=== PATIENT | male | born 1940 | race Caucasian/White ===

== ENCOUNTER 2016-04-06 01:46 | Emergency (ER) | payer OTHER ==
--- NOTE | 2016-04-06 03:46 | ED CLINICAL REPORT ---
Clinical Report - Physicians/Mid Levels [facility] [address] [place] [address] 04/06/2016 1:47 Patient: SERVANDO LEMA Time Seen: 01:59. Arrived- By ambulance. Historian- patient and EMS personnel. HISTORY OF PRESENT ILLNESS Chief Complaint: VOMITING and DIARRHEA. This started about 4 days ago and is still present. It was gradual in onset and has been constant and waxing/waning. The patient has had nausea and vomiting. He has had loose stools. This has occurred numerous times. It has been watery. No bloody diarrhea. No black stools, bloody stools, abdominal pain or known contact with a sick individual. Has not recently been on antibiotics. The illness is described as severe. REVIEW OF SYSTEMS No chills, fever, sweats, calf pain or chest pain. No palpitations. He has had a severe cough productive of thick, yellow, blood tinged sputum. He has had pedal edema involving the right and left leg (chronically). It has been similar to previous symptoms. 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 All systems otherwise negative, except as recorded above. PAST HISTORY Dialysis on Monday, and Monday PCP - [facility]. Problems: Atrial Fibrillation. Renal Failure. Internal defirbrilator . Pulmonary Embolism. Cancer. Additional Surgeries: Back Surgery. Internal Defibrillator. Pulmonary ectomy. Shoulder Surgery. Medications: Megestrol Acetate Oral (Suspension 40 mg/mL) 400mg , daily as needed. Diphenoxylate-Atropine Oral (Tablet 2.5-0.025 mg) 1 tablet, 4 x daily as needed. Calciun carbonate 1000mg , every 4 hrs PRN. Warfarin Sodium Oral (2.5mg for 1 day, 5 mg for 3-4 days , dependent on INR ). Omeprazole Oral 20 mg, daily. Midodrine HCl Oral 5 mg, 3 x daily. Metoprolol Succinate ER Oral (Tablet Extended Release 24 Hour 50 mg) 1 tablet, 2 x daily. Fludrocortisone 0.2mg, daily. FiberCon Oral (Tablet 625 mg) 1 tablet, daily. Citalopram Hydrobromide Oral (Tablet 20 mg) 1 tablet, daily. Atorvastatin Calcium Oral 80 mg, daily. Allergies: Another antibiotic - pt unsure of name . Cipro. SOCIAL HISTORY Smoker- current status unknown. FAMILY HISTORY Heart disease in multiple family members, first-degree relative (father and sibling). ADDITIONAL NOTES The nursing notes have been reviewed. PHYSICAL EXAM Vital Signs: 04/06/2016 01:51 BP: 92/60. HR: 59. RR: 17. O2 saturation: 99%. Pain level now: 0/10. Have been reviewed. Appearance: Alert. Eyes: Pupils equal, round and reactive to light. ENT: Pharynx normal. Neck: Normal inspection. Neck supple. CVS: Abnormal rhythm, which is irregularly irregular. Cardiac murmur present. Respiratory: No respiratory distress. Rhonchi present in the left mid-lung posteriorly. Abdomen: Soft and nontender. Bowel sounds normal. No organomegaly. No mass. Back: Normal inspection. Skin: Skin warm. Normal skin color. Normal skin turgor. Extremities: Bilateral mild pitting edema of the lower extremities. No calf tenderness. LABS, X-RAYS, AND EKG EKG: Rate: 76. Atrial fibrillation. T wave inversion in lead V5 and V6. Prior EKG unavailable. The study has been independently viewed by me. Chest X-ray: (IMPRESSION: 1. Mild to moderate bibasilar consolidation/atelectasis, compatible with pneumonia (e.g., bacterial, Mycoplasma, viral). 2. Left subclavian pacemaker. 3. Status post median sternotomy. 4. Moderate cardiomegaly with mild congestion. While findings are accentuated due to suboptimal inspiration, one might consider occult congestive heart failure.). The X-rays were interpreted by the radiologist and contemporaneously by me. Laboratory Tests: CBC w Diff: (SUSY: 04/06/2016 02:00) ( MsgRcvd 04/06/2016 02:17) Final results Test Result Flag Units (Reference) WHITE BLOOD COUNT 7.4 K/uL (4.5-11.5) RED BLOOD COUNT 3.37 L M/uL (4.50-5.90) HEMOGLOBIN 10.0 L gm/dL (13.5-17.5) HEMATOCRIT 31.9 L % (41.0-53.0) MEAN CELL VOLUME 95 fL (80-100) MEAN CORPUSCULAR HGB 30 pg (26-34) MEAN CORPUSCULAR HGB CONC 31 g/dL (31-37) RED CELL DISTRIBUTION WIDTH 20.0 H % (11.6-14.8) PLATELET COUNT 260 K/uL (150-400) NEUTROPHIL % 81.3 H % (50-75) LYMPH % 8.5 L % (25-40) MONO % 9.8 % (3-14) EOSINOPHIL % 0.2 % (0-4) BASOPHIL % 0.2 % (0-2) PT with INR: (SUSY: 04/06/2016 02:00) ( MsgRcvd 04/06/2016 03:16) Final results Test Result Flag Units (Reference) INR 5.0 H (0.8-1.2) Results called: ALFRED @0315 04/06/16Low Intensity Therapy: INR 1.5-2.0 PT range 18.5-23.1Mod.Intensity Therapy: INR 2.0-3.0 PT range 23.1-31.5High Intensity Therapy: INR 2.5-3.5 PT range 27.4-35.5High Intensity Therapy 2: INR 3.0-4.0 PT range 31.5-39.3 APTT 62 H SECONDS (24-34) [id number]: (SUSY: 04/06/2016 02:00) ( MsgRcvd 04/06/2016 03:52) Final results Test Result Flag Units (Reference) PROCALCITONIN 0.6 H ng/mL (0-0.5) PCT Concentration: Interpretation : Risk/option for action PCT <=0.5 ng/mL : Systemic : Low risk forinfection(sepsis): progression to severeis not likely. : systemic infection.Local bacterial : CAUTION-PCT levelsinfection is : below 0.5 ng/mL do notpossible. : exclude an infection,because localizedinfections (withoutsystemic signs) may beassociated with suchlow levels. If PCT ismeasured very earlyafter a bacterialchallenge (usually <6hours), these valuesmay still be low. Inthis case PCT shouldbe re-assessed 6-24hours later. PCT >0.5 and : Systemic infection: Moderate risk for<= 2 ng/mL : (sepsis) is : progression to severepossible, but : systemic infection.other conditions : The patient should beare known to : closely monitoredelevate PCT. : both clinically andby re-assessing PCTwithin 6-24 hours. PCT > 2 ng/mL : Systemic infection: High risk for(sepsis) is likely: progression to severeunless other : systemic infection.causes are known. : PCT >= 10 ng/mL : Important systemic: High likelihood ofinflammatory : severe sepsis orresponse, almost : septic shock.exclusively due to:severe bacterial :sepsis or septic :shock. : LE: (SUSY: 04/06/2016 02:00) ( MsgRcvd 04/06/2016 03:12) Final results Test Result Flag Units (Reference) CPK 84 U/L (24-260) TROPONIN I 0.11 ng/mL (0.00-1.5) TROPONIN REFERENCE RANGE:<0.1 NEGATIVE0.1-1.5 INDETERMINANT>1.5 POSITIVE CMP: (SUSY: 04/06/2016 02:00) ( MsgRcvd 04/06/2016 02:37) Final results Test Result Flag Units (Reference) GLUCOSE 98 mg/dL (70-110) BUN 54 H mg/dL (7-18) CREATININE 3.3 H mg/dL (0.6-1.3) Estimated GFR 19.37 mL/min Estimated GFR- 23.47 mL/min Note: Persistent reduction over 3 months in eGFR<60 mL/min/1.73 m2 defines CKD. Patients with eGFR values>=60 mL/min/1.73 m2 may also have CKD if evidence ofpersistent proteinuria. Additional information may be foundat www.[email or web address].org. SODIUM 140 mmol/L (136-145) POTASSIUM 4.0 mmol/L (3.5-5.1) CHLORIDE 98 mmol/L (98-107) CARBON DIOXIDE 30 mmol/L (21-32) CALCIUM 9.0 mg/dL (8.5-10.1) TOTAL PROTEIN 6.6 g/dL (6.4-8.2) ALBUMIN 2.9 L g/dL (3.3-5.0) BILIRUBIN, TOTAL 0.8 mg/dL (0.0-1.0) ALKALINE PHOSPHATASE 196 H U/L (46-116) AST (SGOT) 34 U/L (15-37) ALT (SGPT) 30 U/L (12-78) LIPASE 300 U/L (73-393) AMYLASE 54 U/L (25-115) . PROGRESS AND PROCEDURES Course of Care: Patient is stable. Discussed case with hospitalist, (Dr. Sebas Murphy at [facility]). Reviewed test results and need for additional work-up. Agreed upon treatment plan and need for patient follow-up. Health care provider will see patient in hospital. Patient/family counseled. Old medical records reviewed. Disposition: Transferred. CLINICAL IMPRESSION Abnormal EKG. Pneumonia. Renal failure- end stage disease. Abnormal tests: (indeterminate troponin, supratherapeutic INR). (Electronically signed by Hardik Simmons MD 04/06/2016 10:24)
--- NOTE | 2016-04-06 03:46 | ED ORDER SUMMARY ---
..... Patient: SERVANDO LEMA OrderSheet [facility] VisitID: [id number] [address] [place] [address] 76y, M Registration Date/Time: 04/06/2016 ORDER SHEET Weight: 86 kg (stated) Allergies: Cipro, Another antibiotic - pt unsure of name GENERAL ORDERS: CBC w Diff Urgent (02:00 04/06/2016 Leny SELF) (Ack 2:01 CHaglawrence ER Projector Booth Operator) (2:48 JQuivey R.N.) CMP Urgent (02:00 04/06/2016 Leny SELF) (Ack 2:01 Nona ER Projector Booth Operator) (2:48 JQuivey R.N.) UA-Culture if indicated Urgent (02:00 04/06/2016 Leny SELF) (Ack 2:01 Nona ER Projector Booth Operator) (Cancelled: Physician Order3:39 JQuivey R.N.) Amylase Urgent (02:00 04/06/2016 Leny SELF) (Ack 2:01 Nona ER Projector Booth Operator) (2:48 JQuivey R.N.) Lipase Urgent (02:00 04/06/2016 Leny SELF) (Ack 2:01 Nona ER Projector Booth Operator) (2:48 JQuivey R.N.) PT with INR Urgent (02:30 04/06/2016 Leny SELF) (Ack 2:33 CHaglawrence ER Projector Booth Operator) (2:48 JQuivey R.N.) PTT Urgent (02:30 04/06/2016 Leny SELF) (Ack 2:33 Nona ER Projector Booth Operator) (2:48 JQuivey R.N.) Medical Case Worker (Continuous) (02:34 04/06/2016 Leny SELF) (3:06 JQuivey R.N.) Chest 1V Urgent (02:34 04/06/2016 Leny SELF) (Ack 2:36 Nona ER Projector Booth Operator) (2:48 JQuivey R.N.) CPK Urgent (02:34 04/06/2016 Leny SELF) (Ack 2:36 Nona ER Projector Booth Operator) (2:48 JQuivey R.N.) Troponin-I Urgent (02:34 04/06/2016 Leny SELF) (Ack 2:36 CHagerty ER Projector Booth Operator) (2:48 JQuivey R.N.) EKG - ER Stat (02:34 04/06/2016 Leny SELF) (3:07 JQuivey R.N.) Pulse oximeter (02:34 04/06/2016 Leny SELF) (2:48 JQuivey R.N.) Oxygen (2 L/min) (NC) (02:34 04/06/2016 Leny SELF) (2:48 JQuivey R.N.) PCT (Procalcitonin) Urgent (03:00 04/06/2016 Leny SELF) (3:24 Nona ER Projector Booth Operator) BNP Urgent (03:00 04/06/2016 Leny SELF) (3:24 CHaglawrence ER Projector Booth Operator) Blood Culture (No) (N/A) Urgent (04:27 04/06/2016 ALawrence ER Tech1 written order Leny SELF) (4:30 ALawrence ER Tech1) Rapid Influenza Screen (Nasal Pharyngeal) (SWAB) Urgent (05:08 04/06/2016 Nona ER Projector Booth Operator verbal order read back to Leny SELF) (Ack 5:12 CHagerty ER Projector Booth Operator) (5:49 JQuivey R.N.) (5:49 CHagerty ER Projector Booth Operator) MEDICATION ORDERS: IV FLUIDS: IV NS : initial bolus 1000 mL (1000 mL/hr), then 150 mL/hr for 4h (NOW); Urgent (02:00 04/06/2016 Leny SELF) (Ack 2:22 JQuivey R.N.) (Cancelled: Physician Order2:53 JQuivey R.N.) Zofran IV 4 mg (NOW) (02:00 04/06/2016 Leny SELF) (Ack 2:22 JQuivey R.N.) (3:06 JQuivey R.N.) IV Saline Lock (02:34 04/06/2016 Leny SELF) (2:54 JQuivey R.N.) Ceftriaxone IV 2 gm/50mL (NOW) (04:05 04/06/2016 Leny SELF) (Ack 4:26 Neliivemaldonado R.N.) (4:34 JQuivey R.N.) Zithromax IV 500 mg/250 mL (NOW) (04:06 04/06/2016 Leny SELF) (Ack 4:26 JQuivemaldonado R.N.) (5:04 JQuivey R.N.) IV NS : initial bolus 250 mL (1000 mL/hr), then none - (NOW) (05:50 04/06/2016 Chema BundyN. verbal order read back to Leny SELF) (5:51 Neliivemaldonado R.N.) ORDER SHEET NOTES: [Electronically signed by Chris Burns R.N. (07:11 04/06/2016)] [Electronically signed by Hardik Simmons MD (10:24 04/06/2016)] [Electronically locked/signed by Chris Burns R.N. (07:11 04/06/2016)]
--- NOTE | 2016-04-06 03:46 | ED ORDER SUMMARY ---
..... Patient: SERVANDO LEMA OrderSheet VisitID: [id number] [address] [place] [address] 76y, M Registration Date/Time: 04/06/2016 ORDER SHEET Weight: 86 kg (stated) Allergies: Cipro, Another antibiotic - pt unsure of name GENERAL ORDERS: CBC w Diff Urgent (02:00 04/06/2016 Leny SELF) (Ack 2:01 CHaglawrence ER Master Machinist) (2:48 JQuivey R.N.) CMP Urgent (02:00 04/06/2016 Leny SELF) (Ack 2:01 Nona ER Master Machinist) (2:48 JQuivey R.N.) UA-Culture if indicated Urgent (02:00 04/06/2016 Leny SELF) (Ack 2:01 Nona ER Master Machinist) (Cancelled: Physician Order3:39 JQuivey R.N.) Amylase Urgent (02:00 04/06/2016 Leny SELF) (Ack 2:01 Nona ER Master Machinist) (2:48 JQuivey R.N.) Lipase Urgent (02:00 04/06/2016 Leny SELF) (Ack 2:01 Nona ER Master Machinist) (2:48 JQuivey R.N.) PT with INR Urgent (02:30 04/06/2016 Leny SELF) (Ack 2:33 CHaglawrence ER Master Machinist) (2:48 JQuivey R.N.) PTT Urgent (02:30 04/06/2016 Leny SELF) (Ack 2:33 Nona ER Master Machinist) (2:48 JQuivey R.N.) Compressor Operator (Continuous) (02:34 04/06/2016 Leny SELF) (3:06 JQuivey R.N.) Chest 1V Urgent (02:34 04/06/2016 Leny SELF) (Ack 2:36 Nona ER Master Machinist) (2:48 JQuivey R.N.) CPK Urgent (02:34 04/06/2016 Leny SELF) (Ack 2:36 Nona ER Master Machinist) (2:48 JQuivey R.N.) Troponin-I Urgent (02:34 04/06/2016 Leny SELF) (Ack 2:36 CHagerty ER Master Machinist) (2:48 JQuivey R.N.) EKG - ER Stat (02:34 04/06/2016 Leny SELF) (3:07 JQuivey R.N.) Pulse oximeter (02:34 04/06/2016 Leny SELF) (2:48 JQuivey R.N.) Oxygen (2 L/min) (NC) (02:34 04/06/2016 Leny SELF) (2:48 JQuivey R.N.) PCT (Procalcitonin) Urgent (03:00 04/06/2016 Leny SELF) (3:24 Nona ER Master Machinist) BNP Urgent (03:00 04/06/2016 Leny SELF) (3:24 CHaglawrence ER Master Machinist) Blood Culture (No) (N/A) Urgent (04:27 04/06/2016 ALawrence ER Tech1 written order Leny SELF) (4:30 ALawrence ER Tech1) Rapid Influenza Screen (Nasal Pharyngeal) (SWAB) Urgent (05:08 04/06/2016 Nona ER Master Machinist verbal order read back to Leny SELF) (Ack 5:12 CHagerty ER Master Machinist) (5:49 JQuivey R.N.) (5:49 CHagerty ER Master Machinist) MEDICATION ORDERS: IV FLUIDS: IV NS : initial bolus 1000 mL (1000 mL/hr), then 150 mL/hr for 4h (NOW); Urgent (02:00 04/06/2016 Leny SELF) (Ack 2:22 JQuivey R.N.) (Cancelled: Physician Order2:53 JQuivey R.N.) Zofran IV 4 mg (NOW) (02:00 04/06/2016 Leny SELF) (Ack 2:22 JQuivey R.N.) (3:06 JQuivey R.N.) IV Saline Lock (02:34 04/06/2016 Leny SELF) (2:54 JQuivey R.N.) Ceftriaxone IV 2 gm/50mL (NOW) (04:05 04/06/2016 Leny SELF) (Ack 4:26 Neliivemaldonado R.N.) (4:34 JQuivey R.N.) Zithromax IV 500 mg/250 mL (NOW) (04:06 04/06/2016 Leny SELF) (Ack 4:26 JQuivemaldonado R.N.) (5:04 JQuivey R.N.) IV NS : initial bolus 250 mL (1000 mL/hr), then none - (NOW) (05:50 04/06/2016 Chema BundyN. verbal order read back to Leny SELF) (5:51 Neliivemaldonado R.N.) ORDER SHEET NOTES: [Electronically signed by Chris Burns R.N. (07:11 04/06/2016)] [Electronically signed by Hardik Simmons MD (10:24 04/06/2016)] [Electronically locked/signed by Chris Burns R.N. (07:11 04/06/2016)]
--- NOTE | 2016-04-06 03:46 | ED NURSING NOTES ---
Clinical Report - Nurses [facility] [address] [place] [address] 04/06/2016 1:47 Patient: SERVANDO LEMA TRIAGE Triage time 01:52. Acuity: LEVEL 3. Chief Complaint: NAUSEA, VOMITING and DIARRHEA and (Cough). 02:05. Alert. SEPSIS SCREEN: Sepsis Screen. Negative (no infection suspected/documented). --02:05 Chris Burns R.N. 01:51 04/06/16. BP: 92/60. HR: 59. RR: 17. O2 saturation: 99%. Pain level now: 0/10. --02:05 Chris Burns R.N. Weight: 86 kg stated. Height/Length: 70 inches Per Patient. BMI: 27.2. --01:54 Chris Burns R.N. Medications Atorvastatin Calcium Oral 80 mg, daily. --02:06 Chris Burns R.N. Citalopram Hydrobromide Oral (Tablet 20 mg) 1 tablet, daily. --02:07 Chris Burns R.N. FiberCon Oral (Tablet 625 mg) 1 tablet, daily. --02:08 Chris Burns R.N. Fludrocortisone 0.2mg, daily. --02:10 Chris Burns R.N. Metoprolol Succinate ER Oral (Tablet Extended Release 24 Hour 50 mg) 1 tablet, 2 x daily. --02:11 Chris Burns R.N. Midodrine HCl Oral 5 mg, 3 x daily. --02:12 Chris Burns R.N. Omeprazole Oral 20 mg, daily. --02:12 Chris Burns R.N. Warfarin Sodium Oral (2.5mg for 1 day, 5 mg for 3-4 days , dependent on INR ). --02:13 Chris Burns R.N. Calciun carbonate 1000mg , every 4 hrs PRN. --02:15 Chris Burns R.N. Diphenoxylate-Atropine Oral (Tablet 2.5-0.025 mg) 1 tablet, 4 x daily as needed. --02:16 Chris Burns R.N. Megestrol Acetate Oral (Suspension 40 mg/mL) 400mg , daily as needed. --02:16 Chris Burns R.N. Allergies Cipro. --02:18 Chris Burns R.N. Another antibiotic - pt unsure of name . --02:18 Chris Burns R.N. History Arrived by EMS. Historian: patient. Accompanied by spouse. Primary physician ([facility] [facility]). Onset. (3 days ago). ( Patient reports N,V & D on and off for 3 days, is a dialysis pt which he received yesterday. is worried he may have pneumonia, she also reports that he was seen by Dr. Hart yesterday and had blood work done). Treatment COLLECTION TELLER: EMS treatment COLLECTION TELLER verbally communicated. PAST MEDICAL HX: Immunizations: up-to-date. SOCIAL HX: Former smoker, end date 1994. Occasional alcohol use. No drug use. No recent travel. No infectious disease exposure. ABUSE ASSESSMENT: No report of abuse. FALL RISK ASSESSMENT: Fall risk assessment completed. No fall risk identified. NUTRITIONAL RISK ASSESSMENT: The nutritional risk assessment revealed no deficiencies. LEARNING NEEDS ASSESSMENT: The learning needs assessment revealed no barriers. FUNCTIONAL ASSESSMENT: Functional assessment performed: requires assistance with the activities of daily living; uses wheelchair. SKIN INTEGRITY ASSESSMENT: Skin integrity risk assessment completed. No skin integrity risk identified. --02:05 Chris Burns R.N. PROBLEMS: Internal defirbrilator . Pulmonary Embolism. Cancer. --02:21 Chris Burns R.N. ADDITIONAL SURGERIES: Back Surgery. Internal Defibrillator. Pulmonary ectomy. Shoulder Surgery. --02:21 Chris Burns R.N. Interventions ID band on patient. To treatment room. --02:05 Chris Burns R.N. 01:40 04/06/2016 Site #1 started prior to arrival by EMS via IV in the right antecubital space with an 18g angiocath. --01:56 Quivey, Chris, R.N. PHYSICAL ASSESSMENT 01:58. To room via stretcher. Patient gowned. GENERAL / NEURO / PSYCH: Alert. Oriented X 4. HEENT: Mucous membranes are pink. RESPIRATORY: Respirations not labored. SKIN: Skin is warm and dry. --01:58 Chris Burns R.N. NURSING PROGRESS NOTES 01:59. Head of bed elevated. Two patient identifiers checked. Call light placed in reach. Side rails up x 2. Bed placed in lowest position. Brakes of bed on. Patient ready for evaluation- chart flagged. --01:59 Chris Burns R.N. 02:03. Patient ID band checked for patient name and birthdate. Blood samples drawn from the right wrist with syringe by nurse ; labeled in presence of the patient and sent to lab: rainbow set. (by Maritza COONEY). --02:06 Chris Burns R.N. 02:46. Portable chest x-ray performed. --02:47 Chris Burns R.N. 03:04 04/06/2016 Zofran (Ondansetron HCl) IVP 4 mg given over 2 minute(s) via site #1. Allergies verified and confirmed 5 rights. IV patency established. IV site checked: no pain, redness, or swelling. IV flushed thoroughly pre- and post-medication administration. --03:06 Chris Burns R.N. EKG time: (0258). EKG was performed by a tech and shown to the ED physician. --03:15 Edith Vick, NEHA Tech1 04:16 04/06/16. BP: 95/69. HR: 75. RR: 19. O2 saturation: 100% on nasal cannula at 2 liters/minute. Pain level now: 0/10. --04:18 Chris Burns R.N. The patient is calm and resting quietly. SKIN: Skin color within normal limits. --04:18 Chris Burns R.N. 04:10. Patient ID band checked for patient name and birthdate: patient confirmed. Blood samples drawn from the right hand with syringe and 23g butterfly by tech per protocol ; labeled in presence of the patient and sent to lab: red and blue top; blood culture (1st set). --04:31 Edith Vick, ER Tech1 04:20. Patient ID band checked for patient name and birthdate: patient confirmed. Blood samples drawn from the right wrist with syringe and 23g butterfly by tech per protocol ; labeled in presence of the patient and sent to lab: blood culture (2nd set). --04:31 Edith Vick, ER Tech1 04:32 04/06/2016 Started 2 gm of Ceftriaxone IVPB in bag #1 50 mL; at 150 mL/hr over 20 minute(s) via site #1 via IV pump. Allergies verified and confirmed 5 rights. IV patency established. IV site checked: no pain, redness, or swelling. IV flushed thoroughly pre- and post-medication administration. --04:34 Chris Burns R.N. 04:53 04/06/2016 Ceftriaxone IVPB Discontinued: bag #1 infused. Total amount infused: 50 mL. IV patency established. IV site checked: no pain, redness, or swelling. IV flushed thoroughly. --04:55 Chris Burns R.N. 05:02 04/06/2016 Started 500 mg of Zithromax (Azithromycin) IVPB in bag #1 250 mL; at 255 mL/hr over 1 hour(s) via site #1 via IV pump. Allergies verified and confirmed 5 rights. IV patency established. IV site checked: no pain, redness, or swelling. IV flushed thoroughly pre- and post-medication administration. --05:04 Chris Burns RBethel Critical value relayed to ED by LAB. BNP: >5000. Critical value. Verified lab result and patient ID. ED physician notifed of critical value. --05:13 Maritza Sandra R.N. 05:18 04/06/16. BP: 93/58. HR: 78. RR: 18. O2 saturation: 98% on nasal cannula at 2 liters/minute. Temp: 98.3 F. Pain level now: 0/10. --05:20 Chris Burns R.N. 05:20. Patient ID band checked for patient name and birthdate: patient confirmed. Flu swab obtained by RN via nasal pharyngeal swab. Labeled in the presence of the patient and sent to lab. --05:21 Chris Burns R.N. 05:48 04/06/2016 Started bag #1 1000 mL IV Fluids IV NS (Saline); at 1000 mL/hr over 15 minute(s) via site #1 via IV pump. IV patency established. IV site checked: no pain, redness, or swelling. IV flushed thoroughly pre- and post-medication administration. --05:51 Chris Burns R.N. 06:04 04/06/2016 Zithromax IVPB Discontinued: bag #1 infused upon transfer. Total amount infused: 250 mL. IV patency established. IV site checked: no pain, redness, or swelling. IV flushed thoroughly. --06:04 Chris Burns R.N. 06:04 04/06/2016 IV Fluids IV NS Discontinued: bag #1 STOPPED upon transfer. Total amount infused: 250 mL. IV patency established. IV site checked: no pain, redness, or swelling. IV flushed thoroughly. (250ml bolus infused). --06:05 Chris Burns R.N. DISPOSITION / DISCHARGE Condition at departure: stable. Fall risk assessment completed. Risk factors identified include patient age greater than 65 years and impairment of mobility. Fall interventions initiated. Patient placed on stretcher. Side rails up x2. Call light in reach of family. No learning barriers present. Transferred to [facility]. Report was given via a phone call. Report included patient's care and treatment and medications given to the patient in the ED. All questions were answered. Report was acknowledged. ([facility]). Patient's personal items include: glasses, Other belongings; items were given to the spouse. He did not have contacts, dentures or a hearing aid. --05:55 Chris Burns R.N. 06:06 04/06/2016 Site #[address] upon transfer; patent, no pain and no signs of infection or infiltration; flushes easily. --06:06 Chris Burns R.N. 06:06. Report was given in person. Report included patient's care, treatment, medications, reviewed medication reconcilliation, and condition (including any recent changes or anticipated changes). All questions were answered. Report was acknowledged. (Aashish [facility]). --06:06 Chris Burns R.N. 05:55 04/06/16. BP: 75/55. HR: 71. RR: 21. O2 saturation: 96% on nasal cannula at 2 liters/minute. Temp: 98.1 F (oral). Pain level now: 0/10. --06:06 Chris Burns R.N. Departure time: 06:20. --06:20 Chris Burns R.N. 06:23 Called Justine Dewey with ETA and Flu swab results. --06:24 Chris Burns R.N. Locked/Released at 04/06/2016 7:11 by Chris Burns R.N.
--- NOTE | 2016-04-06 06:12 | DIAGNOSTIC IMAGING REPORT ---
PROCEDURE: XR CHEST 1 VIEW INDICATION: COUGH TECHNIQUE: Portable AP view a 0245 hours). COMPARISON: None. FINDINGS: Allowing for suboptimal inspiration, there is mild to moderate bibasilar atelectasis/consolidation. Left subclavian pacemaker/defibrillator. Status post median sternotomy. Moderate cardiomegaly with mild pulmonary vascular congestion. Status post resection of the left distal clavicle. Thorax is otherwise normal. IMPRESSION: 1. Mild to moderate bibasilar consolidation/atelectasis, compatible with pneumonia (e.g., bacterial, Mycoplasma, viral). 2. Left subclavian pacemaker. 3. Status post median sternotomy. 4. Moderate cardiomegaly with mild congestion. While findings are accentuated due to suboptimal inspiration, one might consider occult congestive heart failure.
--- NOTE | 2016-04-06 10:24 | ED MAR SUMMARY ---
..... Medication Administration Record [facility] [address] [place] [address] Patient: SERVANDO LEMA Visit ID: [id number] 76y, M Weight: 86.0 kg Height/Length: 70 in BMI: 27.2 ALLERGIES: Another antibiotic - pt unsure of name , Cipro Given 03:04 04/06/2016 Chris Burns R.N. Medication Administered: ZOFRAN [IVP] (ONDANSETRON HCL), Dose: 4 mg IVP over 2 minute(s), Site: #1 right AC. Medication Ordered: Zofran IV 4 mg (NOW). Start 04:32 04/06/2016 Chris Burns R.N., Stop 04:53 04/06/2016 Chris Burns R.N. Medication Administered: CEFTRIAXONE [IVPB], Dose: 2 gm IVPB over 20 minute(s), Rate: 150 mL/hr, Dispensed: 50 mL bag, Site: #1 right AC. Medication Ordered: Ceftriaxone IV 2 gm/50mL (NOW). Start 05:02 04/06/2016 Chris Burns R.N., Stop 06:04 04/06/2016 Chris Burns R.N. Medication Administered: ZITHROMAX [IVPB] (AZITHROMYCIN), Dose: 500 mg IVPB over 1 hour(s), Rate: 255 mL/hr, Dispensed: 250 mL bag, Site: #1 right AC. Medication Ordered: Zithromax IV 500 mg/250 mL (NOW). Start 05:48 04/06/2016 Chris Burns RViktorN., Stop 06:04 04/06/2016 Chris Burns R.N. Medication Administered: IV NS (SALINE), Dose: IV Fluids over 15 minute(s), Rate: 1000 mL/hr, Dispensed: 1000 mL bag, Site: #1 right AC. Medication Ordered: IV NS : initial bolus 250 mL (1000 mL/hr), then none - (NOW).
--- NOTE | 2016-04-06 10:24 | ED DISCHARGE INSTRUCTIONS ---
Patient: SERVANDO LEMA General Instructions [facility] VisitID: [id number] [address] [place] [address] 76y, M Registration Date/Time: 04/06/2016 Abnormal EKG. Pneumonia. Renal failure- end stage disease. Abnormal tests: (indeterminate troponin, supratherapeutic INR). (Electronically signed by Hardik Simmosn MD 04/06/2016 10:24)
--- NOTE | 2016-04-06 10:24 | ED DISCHARGE INSTRUCTIONS ---
Patient: SERVANDO LEMA General Instructions [facility] VisitID: [id number] [address] [place] [address] 76y, M Registration Date/Time: 04/06/2016 Abnormal EKG. Pneumonia. Renal failure- end stage disease. Abnormal tests: (indeterminate troponin, supratherapeutic INR). (Electronically signed by Hardik Simmons MD 04/06/2016 10:24)
--- NOTE | 2016-04-06 10:24 | ED MAR SUMMARY ---
..... Medication Administration Record [facility] [address] [place] [address] Patient: SERVANDO LEMA Visit ID: [id number] 76y, M Weight: 86.0 kg Height/Length: 70 in BMI: 27.2 ALLERGIES: Another antibiotic - pt unsure of name , Cipro Given 03:04 04/06/2016 Chris Burns R.N. Medication Administered: ZOFRAN [IVP] (ONDANSETRON HCL), Dose: 4 mg IVP over 2 minute(s), Site: #1 right AC. Medication Ordered: Zofran IV 4 mg (NOW). Start 04:32 04/06/2016 Chris Burns R.N., Stop 04:53 04/06/2016 Chris Burns R.N. Medication Administered: CEFTRIAXONE [IVPB], Dose: 2 gm IVPB over 20 minute(s), Rate: 150 mL/hr, Dispensed: 50 mL bag, Site: #1 right AC. Medication Ordered: Ceftriaxone IV 2 gm/50mL (NOW). Start 05:02 04/06/2016 Chris Burns R.N., Stop 06:04 04/06/2016 Chris Burns R.N. Medication Administered: ZITHROMAX [IVPB] (AZITHROMYCIN), Dose: 500 mg IVPB over 1 hour(s), Rate: 255 mL/hr, Dispensed: 250 mL bag, Site: #1 right AC. Medication Ordered: Zithromax IV 500 mg/250 mL (NOW). Start 05:48 04/06/2016 Chris Burns RViktorN., Stop 06:04 04/06/2016 Chris Burns R.N. Medication Administered: IV NS (SALINE), Dose: IV Fluids over 15 minute(s), Rate: 1000 mL/hr, Dispensed: 1000 mL bag, Site: #1 right AC. Medication Ordered: IV NS : initial bolus 250 mL (1000 mL/hr), then none - (NOW).
--- NOTE | 2016-04-06 10:24 | ED MED RECONCILIATION SUMMARY ---
Patient: SERVANDO LEMA Medication Reconciliation Report [facility] VisitID: [id number] [address] [place] [address] 76y, M Registration Date/Time: 04/06/2016 Weight: 86 kg Height/Length: 70 in. BMI: 27.2 ALLERGIES: Another antibiotic - pt unsure of name , Cipro The patient's Home Medications are listed below: THE FOLLOWING MEDICATIONS NEED TO BE RECONCILED: Atorvastatin Calcium Oral 80 mg, daily Calciun carbonate 1000mg , every 4 hrs PRN Citalopram Hydrobromide Oral (20 mg) 1 tablet, daily Diphenoxylate-Atropine Oral (2.5-0.025 mg) 1 tablet, 4 x daily FiberCon Oral (625 mg) 1 tablet, daily Fludrocortisone 0.2mg, daily Megestrol Acetate Oral (40 mg/mL) 400mg , daily Metoprolol Succinate ER Oral (50 mg) 1 tablet, 2 x daily Midodrine HCl Oral 5 mg, 3 x daily Omeprazole Oral 20 mg, daily Warfarin Sodium Oral, 2.5mg for 1 day, 5 mg for 3-4 days , dependent on INR The source(s) of the original Home Medication information: Not obtained. The following Medications were given to the patient in the Emergency Department: Zofran [IVP] IVP 4 mg, administered: 04/06/2016 3:04:00 AM Ceftriaxone [IVPB] IVPB bolus 0, then 2 gm 150 mL/hr, administered: 04/06/2016 4:32:00 AM Zithromax [IVPB] IVPB bolus 0, then 500 mg 255 mL/hr, administered: 04/06/2016 5:02:00 AM IV NS IV Fluids bolus 0, then 1000 mL/hr, administered: 04/06/2016 5:48:00 AM The following Medications were prescribed to the patient: None.
--- NOTE | 2016-04-06 10:24 | ED MED RECONCILIATION SUMMARY ---
Patient: SERVANDO LEMA Medication Reconciliation Report [facility] VisitID: [id number] [address] [place] [address] 76y, M Registration Date/Time: 04/06/2016 Weight: 86 kg Height/Length: 70 in. BMI: 27.2 ALLERGIES: Another antibiotic - pt unsure of name , Cipro The patient's Home Medications are listed below: THE FOLLOWING MEDICATIONS NEED TO BE RECONCILED: Atorvastatin Calcium Oral 80 mg, daily Calciun carbonate 1000mg , every 4 hrs PRN Citalopram Hydrobromide Oral (20 mg) 1 tablet, daily Diphenoxylate-Atropine Oral (2.5-0.025 mg) 1 tablet, 4 x daily FiberCon Oral (625 mg) 1 tablet, daily Fludrocortisone 0.2mg, daily Megestrol Acetate Oral (40 mg/mL) 400mg , daily Metoprolol Succinate ER Oral (50 mg) 1 tablet, 2 x daily Midodrine HCl Oral 5 mg, 3 x daily Omeprazole Oral 20 mg, daily Warfarin Sodium Oral, 2.5mg for 1 day, 5 mg for 3-4 days , dependent on INR The source(s) of the original Home Medication information: Not obtained. The following Medications were given to the patient in the Emergency Department: Zofran [IVP] IVP 4 mg, administered: 04/06/2016 3:04:00 AM Ceftriaxone [IVPB] IVPB bolus 0, then 2 gm 150 mL/hr, administered: 04/06/2016 4:32:00 AM Zithromax [IVPB] IVPB bolus 0, then 500 mg 255 mL/hr, administered: 04/06/2016 5:02:00 AM IV NS IV Fluids bolus 0, then 1000 mL/hr, administered: 04/06/2016 5:48:00 AM The following Medications were prescribed to the patient: None.
== END 2016-04-06 06:20 | disposition short-term general hospital (02) ==
LOC: ED SRH 01:46
DX: R94.31 Abnormal electrocardiogram [ECG] [EKG] (principal); R79.89 Other specified abnormal findings of blood chemistry; N18.6 End stage renal disease; J18.9 Pneumonia, unspecified organism; Z99.2 Dependence on renal dialysis; I48.91 Unspecified atrial fibrillation; Z79.01 Long term (current) use of anticoagulants; Z88.1 Allergy status to other antibiotic agents
CPT/HCPCS: 90065; 90074; 90100; 90616; 91320; 91400; 92235; 92530; 92610; 93004; 94001; 94060; 95059

== ENCOUNTER 2016-06-06 21:15 | Emergency (ER) | payer OTHER ==
--- NOTE | 2016-06-06 22:22 | DIAGNOSTIC IMAGING REPORT ---
PROCEDURE: XR CHEST 1 VIEW INDICATION: COUGH TECHNIQUE: Single view chest. 2148 hours COMPARISON: 04/06/2016 FINDINGS: Mild cardiomegaly. Median sternotomy changes. Multi lead left-sided pacemaker in stable position. Central vasculature is now indistinct and moderately congested. Thickening of the major fissures bilaterally. Retrocardiac opacity and small left effusion are present. Mild diffuse interstitial prominence. 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 IMPRESSION: 1. Findings of CHF with central vascular and interstitial congestion. 2. Retrocardiac opacity suggestive of atelectasis, edema, and small effusion. 3. Post median sternotomy and pacemaker placement.
--- NOTE | 2016-06-06 23:44 | ED ORDER SUMMARY ---
..... Patient: SERVANDO LEMA OrderSheet [facility] VisitID: [id number] [address] [place] [address] 76y, M Registration Date/Time: 06/06/2016 ORDER SHEET Weight: 77.7 kg (measured) Allergies: Another antibiotic - pt unsure of name , Cipro GENERAL ORDERS: Chest 1V Urgent (21:30 06/06/2016 Leny SELF) (Ack 21:33 AMcQuoid ER Tech1) (21:56 MCampbell) Blood Culture (No) (N/A) Urgent (21:31 06/06/2016 Leny SELF) (Ack 21:33 AMcQuoid ER Tech1) (22:24 SBalde R.N.) CBC w Diff Urgent (21:32 06/06/2016 Leny SELF) (Ack 21:33 AMcQuoid ER Tech1) (22:22 SBalde R.N.) CMP Urgent (21:32 06/06/2016 Leny SELF) (Ack 21:33 AMcQuoid ER Tech1) (22:22 SBalde R.N.) UA-Culture if indicated Urgent (21:32 06/06/2016 Leny SELF) (Ack 21:33 AMcQuoid ER Tech1) Amylase Urgent (21:06/06/2016 Leny SELF) (Ack 21:33 AMcQuoid ER Tech1) (22:22 SBalde R.N.) Lipase Urgent (21:32 06/06/2016 Leny SELF) (Ack 21:33 AMcQuoid ER Tech1) (22:22 SBalde R.N.) Magnesium Urgent (21:06/06/2016 Leny SELF) (Ack 21:33 AMcQuoid ER Tech1) (22:22 SBalde R.N.) Lactic Acid for Sepsis Protocol Urgent (21:32 06/06/2016 Leny SELF) (Ack 21:33 AMcQuoid ER Tech1) (22:22 SBalde R.N.) PCT (Procalcitonin) Urgent (21:32 06/06/2016 Leny SELF) (Ack 21:33 AMcQuoid ER Tech1) (22:22 SBalde R.N.) CPK Urgent (21:33 06/06/2016 Leny SELF) (Ack 21:34 AMcQuoid ER Tech1) (22:22 SBalde R.N.) Troponin-I Urgent (21:33 06/06/2016 Leny SELF) (Ack 21:34 AMcQuoid ER Tech1) (22:22 SBalde R.N.) BNP Urgent (21:33 06/06/2016 Leny SELF) (Ack 21:34 AMcQuoid ER Tech1) (22:22 SBalde R.N.) PTT Urgent (21:33 06/06/2016 Leny SELF) (Ack 21:34 AMcQuoid ER Tech1) (22:22 SBalde R.N.) PT with INR Urgent (21:33 06/06/2016 Leny SELF) (Ack 21:34 AMcQuoid ER Tech1) (22:22 SBalde R.N.) EKG - ER Stat (21:33 06/06/2016 Leny SELF) (Ack 21:34 AMcQuoid ER Tech1) (21:47 CHategekimana) Pulse oximeter (21:33 06/06/2016 Leny SELF) (Ack 21:34 AMcQuoid ER Tech1) (22:22 SBalde R.N.) Venous Blood Gas (G) Urgent (21:54 06/06/2016 PHutchinson DO) (21:59 AMcQuoid ER Tech1) CT Head wo Cont Urgent (03:13 06/07/2016 Leny SELF) (Ack 3:14 AMcQuoid ER Tech1) MEDICATION ORDERS: IV FLUIDS: IV NS : initial bolus 250 mL (1000 mL/hr), then 100 mL/hr for 4h (NOW); Urgent (21:31 06/06/2016 Leny SELF) (22:24 SBalde R.N.) ORDER SHEET NOTES: [Electronically signed by Tigist Jasso R.N. (03:39 06/07/2016)] [Electronically signed by Hardik Simmons MD (03:51 06/07/2016)] [Electronically locked/signed by Tigist Jasso R.N. (03:39 06/07/2016)Paolo
--- NOTE | 2016-06-06 23:44 | ED NURSING NOTES ---
Clinical Report - [facility] [address] [place] [address] 06/06/2016 21:15 [id number] Triage time 21:Jun 06 2016. Acuity: LEVEL 2. Chief Complaint: (Hot to touch, disoriented to some questions, not all. denies any pain.). Alert. No acute distress. SEPSIS SCREEN: Sepsis Screen. Infection suspected/documented. Heart rate greater than 90, respiratory rate greater than 20 and glucose greater than 120 (with no history of diabetes). Physician notified and protocol initiated. ISMAEL COMA SCORE: Ismael Coma Scale: 14- eyes open spontaneously (4); best verbal response- disoriented (4); best motor response- obeys commands (6). --21:40 Leah Byrd R.N. 21:20 06/06/16. BP: 102/64. HR: 112. RR: 22. Temp: 99.7 F. Pain level now 0/10. --21:40 Leah Byrd R.N. Weight: 77.7 kg measured. Height/Length: 72 inches Estimated. BMI: 23.3. --21:20 Leah Byrd R.N. Medications Fludrocortisone 0.1mg, daily. Metoprolol Succinate ER Oral (Tablet Extended Release 24 Hour 50 mg) 1/2 tablet, daily. Omeprazole Oral 40 mg, daily. --21:27 Leah Byrd R.N. Atorvastatin Calcium Oral 80 mg, daily. Citalopram Hydrobromide Oral (Tablet 20 mg) 1 tablet, daily. Diphenoxylate-Atropine Oral (Tablet 2.5-0.025 mg) 1 tablet, 4 x daily as needed. FiberCon Oral (Tablet 625 mg) 1 tablet, daily. Megestrol Acetate Oral (Suspension 40 mg/mL) 400mg , daily as needed. Midodrine HCl Oral 5 mg, 3 x daily. Warfarin Sodium Oral (2.5mg for 1 day, 5 mg for 3-4 days , dependent on INR ). --21:27 Leah Byrd R.N. B-12 Oral 1-2 mg, TID. --22:03 Leah Byrd R.N. The following entry was struck by Leah Byrd R.N., 22:03 (06/06/16) Reason - other. <<STRICKEN ENTRY-- Calciun carbonate 1000mg , every 4 hrs PRN. --21:27 Leah Byrd R.N. --END STRIKE>> The following entry was struck and corrected by Leah Byrd R.N., 22:03 (06/06/16) Reason for correction - other(correction). <<STRICKEN ENTRY-- Fludrocortisone 0.2mg, daily. --21:27 Leah Byrd R.N. --END STRIKE>> The following entry was struck and corrected by Leah Byrd R.N., 22:02 (06/06/16) Reason for correction - other(correction). <<STRICKEN ENTRY-- Omeprazole Oral 20 mg, daily. --21:27 Leah Byrd R.N. --END STRIKE>> The following entry was struck and corrected by Leah Byrd R.N., 22:02 (06/06/16) Reason for correction - other(correction). <<STRICKEN ENTRY-- Metoprolol Succinate ER Oral (Tablet Extended Release 24 Hour 50 mg) 1 tablet, 2 x daily. --21:27 Leah Byrd R.N. --END STRIKE>>. Medication/allergy information source: the patient's spouse. --21:40 Leah Byrd R.N. Allergies Another antibiotic - pt unsure of name . Cipro. --21:27 Leah Byrd R.N. History Arrived by EMS, and (Colin). Historian: patient. Accompanied by ( is Elham). Primary physician (Wanda Treadwell, [facility]). ( called [phone] because her seems, "distant". Also brought him to the Walk In clinic today ([facility]) for r/o PNU, had a CXR was told Negative. Dialysis TWTH - 2 years now at [facility]). Onset. (couple days). He has had fever. 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 SOCIAL HX: Former smoker. No alcohol use or drug use. NUTRITIONAL RISK ASSESSMENT: The nutritional risk assessment revealed no deficiencies. --21:40 Leah Byrd R.N. Treatment COMMERCIAL [employer]LECTIONS DRIVER: Finger stick glucose performed (120). Pulse oximeter applied (high 80's to low 90's). End tidal CO2: 24. --22:21 Leah Byrd R.N. PROBLEMS: Abnormal Test. Abnormal EKG. Pneumonia. Atrial Fibrillation. Renal Failure. Internal defirbrilator . Pulmonary Embolism. Cancer. --21:27 Leah Byrd R.N. ADDITIONAL SURGERIES: Back Surgery. Internal Defibrillator. Pulmonary ectomy. Shoulder Surgery. --21:27 Leah Byrd R.N. Interventions ID band on patient. To room. --21:40 Leah Byrd R.N. PHYSICAL ASSESSMENT To room via stretcher. GENERAL / NEURO / PSYCH: Appears in no acute distress. The patient is disoriented to time. SKIN: Skin intact. Skin is dry. ( hot to touch). --21:41 Leah Byrd R.N. RESPIRATORY: Mild respiratory distress. The patient can speak a few words at a time. Decreased breath sounds. Crackles present. --22:22 Leah Byrd R.N. CVS: Cardiac rhythm: atrial fibrillation. --22:22 Leah Byrd R.N. NURSING PROGRESS NOTES 21:41 06/06/2016 Site #1 started prior to arrival by EMS via IV in the right antecubital space with an 20g angiocath. --21:41 Leah Byrd R.N. 21:42 06/06/2016 Site #2 started via IV in the right wrist with an 20g angiocath, with aseptic technique; three attempts. Blood drawn: rainbow set. Sent to the lab. Saline lock flushed with saline. --21:42 Leah Byrd R.N. 21:42 06/06/2016 Two (2) unsuccessful IV access attempts including the right forearm (2 attempts by RICH Ibrahim). --21:42 Leah Byrd R.N. ( Sepsis Protocol initiated.). --21:43 Leah Byrd R.N. EKG time: (2143 PM). EKG was ordered, performed by a tech and shown to the ED physician. --21:49 Shira Foster ( Provider at bedside.). --22:04 Leah Byrd R.N. Cardiac rhythm: atrial fibrillation. Oxygen administered by nasal cannula at 2 liters. monitor worker and pulse oximeter placed on patient; front desk monitor- Lead II; monitor alarms on. Patient gowned. Reassurance given. --22:05 Leah Byrd R.N. 22:00 06/06/2016 Started bag #1 1000 mL IV Fluids IV NS (Saline); bolus of 250 mL over 30 minute(s) then at 100 mL/hr over 4 hour(s) via site #1 via IV pump. IV patency established. IV site checked: no pain, redness, or swelling. IV flushed thoroughly pre- and post-medication administration. Completed per protocol. --22:24 Leah Byrd R.N. Call light placed in reach. ( Water provided per pt request. at bedside.). --22:25 Leah Byrd R.N. 00:05 06/07/16. BP: 95/68. HR: 98. RR: 18. O2 saturation: 97%. Pain level now 0/10. --00:06 Leah Byrd R.N. The patient is sleeping. --00:16 Leah Byrd R.N. 02:22 06/07/16. ( Patient repositioned in bed, legs elevated. Waiting for bed assignment at [facility].). --02:22 Tigist Jasso R.N. 03:29 06/07/16. ( CT of brain completed. Moved back to EMS stretcher. Does not appear to have any intracranial bleeding . Pt is now answering questions, able to give name, , wifes name and his current location correctly.). --03:29 Tigist Jasso R.N. 22:30 06/07/2016 IV Fluids IV NS via IV site #1 Rate Changed: bag #1 25 mL/hr via IV pump (pt has a BNP of greater than 5000 and also a Dialysis pt.). --00:17 Leah Byrd R.N. 00:18 06/07/16. BP: 101/69. HR: 117. RR: 22. O2 saturation: 93%. Pain level now 0/10. --00:18 Leah Byrd R.N. ( repositioned. Saline Locked.). --01:22 Leah Byrd R.N. 01:21 06/07/16. Temp: 97.4 F. --01:22 Leah Byrd R.N. 01:22 06/07/16. BP: 101/69. HR: 99. RR: 18. O2 saturation: 98%. --01:22 Leah Byrd R.N. ( pt increased to 3 liters.). --01:22 Leah Byrd R.N. ( Fluids stopped d/t BNP. Pt repositioned because he audibly sounds more wet with breathing. Lung sounds have not worsened, improved with positioning.). --01:26 Leah Byrd R.N. Care transferred and report given (RICH Andres). --01:27 Leah Byrd R.N. DISPOSITION / DISCHARGE 02:34 06/07/2016 Site #[address] upon transfer. --02:34 Tigist Jasso R.N. 02:34 06/07/2016 Site #[address] upon transfer. --02:34 Tigist Jasso R.N. 02:35 06/07/16. Cardiac rhythm: atrial fibrillation. Condition at departure: improved and stable. The goals identified in the patient's plan of care were met. Transferred to [facility] (room 3024). Report was given to a nurse via a phone call. Report included patient's care, treatment, medications, reviewed medication reconcilliation, and condition (including any recent changes or anticipated changes). All questions were answered. Report was acknowledged. (to Meghan Johnson). Bed obtained (02:30 Jun 07 2016). --02:35 Tigist Jasso R.N. 02:35 06/07/16. BP: 104/66. HR: 92. RR: 18. O2 saturation: 97%. Temp: 97.9 F. Pain level now 0/10. --02:35 Tigist Jasso R.N. Transferred to [facility] (03:05). ( Pt is being transported by [facility] on the front desk monitor. Report was given to Braulio VILLANUEVA. Pt was placed on the stretcher and seatbelts were placed.). --03:09 Patrice Douglas R.N. Departure time: 03:09. --03:09 Patrice Douglas R.N. 03:19 06/07/16. Cardiac rhythm: atrial fibrillation. The goals identified in the patient's plan of care were met. ( Patient with acute mental status change. Difficult to arouse, required painful stimulation. Now awake. Unable to give birthday or state name. MD aware, CT ordered. Transport crew with patient now. MD will call receiving facility with results of CT.). --03:19 Tigist Jasso R.N. 03:19 06/07/16. BP: 102/72. HR: 122. RR: 18. O2 saturation: 97%. Temp: 98.0 F. --03:19 Tigist Jasso R.N. Departure time: 03:38 Jun 07 2016. ( RICH Christianson at [facility] updated on patient condition. fingerstick blood sugar prior to CT 98.). --03:38 Tigist Jasso R.N. Locked/Released at 06/07/2016 3:39 by Tigist Jasso R.N.
--- NOTE | 2016-06-06 23:44 | ED ORDER SUMMARY ---
..... Patient: SERVANDO LEMA OrderSheet [facility] VisitID: [id number] [address] [place] [address] 76y, M Registration Date/Time: 06/06/2016 ORDER SHEET Weight: 77.7 kg (measured) Allergies: Another antibiotic - pt unsure of name , Cipro GENERAL ORDERS: Chest 1V Urgent (21:30 06/06/2016 Leny SELF) (Ack 21:33 AMcQuoid ER Tech1) (21:56 MCampbell) Blood Culture (No) (N/A) Urgent (21:31 06/06/2016 Leny SELF) (Ack 21:33 AMcQuoid ER Tech1) (22:24 SBalde R.N.) CBC w Diff Urgent (21:32 06/06/2016 Leny SELF) (Ack 21:33 AMcQuoid ER Tech1) (22:22 SBalde R.N.) CMP Urgent (21:32 06/06/2016 Leny SELF) (Ack 21:33 AMcQuoid ER Tech1) (22:22 SBalde R.N.) UA-Culture if indicated Urgent (21:32 06/06/2016 Leny SELF) (Ack 21:33 AMcQuoid ER Tech1) Amylase Urgent (21:06/06/2016 Leny SELF) (Ack 21:33 AMcQuoid ER Tech1) (22:22 SBalde R.N.) Lipase Urgent (21:32 06/06/2016 Leny SELF) (Ack 21:33 AMcQuoid ER Tech1) (22:22 SBalde R.N.) Magnesium Urgent (21:06/06/2016 Leny SELF) (Ack 21:33 AMcQuoid ER Tech1) (22:22 SBalde R.N.) Lactic Acid for Sepsis Protocol Urgent (21:32 06/06/2016 Leny SELF) (Ack 21:33 AMcQuoid ER Tech1) (22:22 SBalde R.N.) PCT (Procalcitonin) Urgent (21:32 06/06/2016 Leny SELF) (Ack 21:33 AMcQuoid ER Tech1) (22:22 SBalde R.N.) CPK Urgent (21:33 06/06/2016 Leny SELF) (Ack 21:34 AMcQuoid ER Tech1) (22:22 SBalde R.N.) Troponin-I Urgent (21:33 06/06/2016 Leny SELF) (Ack 21:34 AMcQuoid ER Tech1) (22:22 SBalde R.N.) BNP Urgent (21:33 06/06/2016 Leny SELF) (Ack 21:34 AMcQuoid ER Tech1) (22:22 SBalde R.N.) PTT Urgent (21:33 06/06/2016 Leny SELF) (Ack 21:34 AMcQuoid ER Tech1) (22:22 SBalde R.N.) PT with INR Urgent (21:33 06/06/2016 Leny SELF) (Ack 21:34 AMcQuoid ER Tech1) (22:22 SBalde R.N.) EKG - ER Stat (21:33 06/06/2016 Leny SELF) (Ack 21:34 AMcQuoid ER Tech1) (21:47 CHategekimana) Pulse oximeter (21:33 06/06/2016 Leny SELF) (Ack 21:34 AMcQuoid ER Tech1) (22:22 SBalde R.N.) Venous Blood Gas (G) Urgent (21:54 06/06/2016 PHutchinson DO) (21:59 AMcQuoid ER Tech1) CT Head wo Cont Urgent (03:13 06/07/2016 Leny SELF) (Ack 3:14 AMcQuoid ER Tech1) MEDICATION ORDERS: IV FLUIDS: IV NS : initial bolus 250 mL (1000 mL/hr), then 100 mL/hr for 4h (NOW); Urgent (21:31 06/06/2016 Leny SELF) (22:24 SBalde R.N.) ORDER SHEET NOTES: [Electronically signed by Tigist Jasso R.N. (03:39 06/07/2016)] [Electronically signed by Hardik Simmons MD (03:51 06/07/2016)] [Electronically locked/signed by Tigist Jasso R.N. (03:39 06/07/2016)Paolo
--- NOTE | 2016-06-06 23:44 | ED CLINICAL REPORT ---
Clinical Report - Physicians/Mid Levels [facility] [address] [place] [address] 06/06/2016 21:15 Patient: SERVANDO LEMA Time Seen: 21:21. Arrived- By ambulance. Historian- patient, EMS personnel and spouse. History limited by vague historian. HISTORY OF PRESENT ILLNESS Chief Complaint: DYSPNEA. At its maximum, severity described as moderate. When seen in the E.D., severity described as moderate. This started several days ago and is still present and now worse. It was gradual in onset and has been constant. (his says that he has had a cough productive of white thick phlegm. Patient reports chronic intermittent palpitations he denies any chest pain denies leg swelling. He has chronic renal failure and receives dialysis every Monday, and Monday.). Similar symptoms previously: Several times. REVIEW OF SYSTEMS No chills, fever, sweats, calf pain or chest pain. No pedal edema, abdominal pain, constipation, diarrhea or nausea. No vomiting or urinary problems. He has had a cough and difficulty breathing. He has had palpitations. It has been similar to previous symptoms. All systems otherwise negative, except as recorded above. PAST HISTORY Problems: Abnormal Test. Abnormal EKG. Pneumonia. Atrial Fibrillation. Renal Failure. Internal defirbrilator . Pulmonary Embolism. Cancer. Additional Surgeries: Back Surgery. Internal Defibrillator. Pulmonary ectomy. Shoulder Surgery. Medications: B-12 Oral 1-2 mg, TID. Atorvastatin Calcium Oral 80 mg, daily. Citalopram Hydrobromide Oral (Tablet 20 mg) 1 tablet, daily. Diphenoxylate-Atropine Oral (Tablet 2.5-0.025 mg) 1 tablet, 4 x daily as needed. FiberCon Oral (Tablet 625 mg) 1 tablet, daily. Megestrol Acetate Oral (Suspension 40 mg/mL) 400mg , daily as needed. Midodrine HCl Oral 5 mg, 3 x daily. Warfarin Sodium Oral (2.5mg for 1 day, 5 mg for 3-4 days , dependent on INR ). Fludrocortisone 0.1mg, daily. Metoprolol Succinate ER Oral (Tablet Extended Release 24 Hour 50 mg) 1/2 tablet, daily. Omeprazole Oral 40 mg, daily. Allergies: Another antibiotic - pt unsure of name . Cipro. SOCIAL HISTORY Former smoker. No alcohol use or drug use. He lives with spouse. Has good social support. FAMILY HISTORY Denies family medical history. ADDITIONAL NOTES The nursing notes have been reviewed. PHYSICAL EXAM Vital Signs: Have been reviewed. Appearance: Alert. Eyes: Pupils equal, round and reactive to light. ENT: Pharynx normal. Neck: Neck supple. No meningeal signs, JVD or carotid bruit. CVS: Tachycardia. Abnormal rhythm, which is irregularly irregular. Respiratory: No respiratory distress. Breath sounds normal. Abdomen: No visible injury. Soft and nontender. Bowel sounds normal. No organomegaly. No mass. Back: Normal inspection. No CVA tenderness. Skin: Skin warm and dry. Normal skin color. Normal skin turgor. Extremities: Extremities exhibit normal ROM. No calf tenderness. No lower extremity edema. LABS, X-RAYS, AND EKG EKG: Rate: 110. Atrial fibrillation. Q waves in lead V1, V2 and V3. Left axis deviation. Changes present when compared to prior EKG. (06 Apr 2016). Chest X-ray: (IMPRESSION: 1. Findings of CHF with central vascular and interstitial congestion. 2. Retrocardiac opacity suggestive of atelectasis, edema, and small effusion.). CT Head: No acute changes. (chronic microvascular ischemic disease and volume loss). The study was interpreted by the radiologist and contemporaneously by me. Laboratory Tests: PT with INR: (SUSY: 06/06/2016 22:00) ( MsgRcvd 06/06/2016 22:28) Final results Test Result Flag Units (Reference) INR 3.6 H (0.8-1.2) Low Intensity Therapy: INR 1.5-2.0 PT range 18.5-23.1Mod.Intensity Therapy: INR 2.0-3.0 PT range 23.1-31.5High Intensity Therapy: INR 2.5-3.5 PT range 27.4-35.5High Intensity Therapy 2: INR 3.0-4.0 PT range 31.5-39.3 APTT 52 H SECONDS (24-34) BNP: (SUSY: 06/06/2016 22:00) ( [facility] 06/06/2016 22:38) Final results Test Result Flag Units (Reference) B-TYPE NATRIURETIC PEPTIDE > 5000 H pg/ml (5-100) CPK: (SUSY: 06/06/2016 22:00) ( [facility] 06/06/2016 22:36) Final results Test Result Flag Units (Reference) CPK 120 U/L (24-260) TROPONIN I 0.22 ng/mL (0.00-1.5) TROPONIN REFERENCE RANGE:<0.1 NEGATIVE0.1-1.5 INDETERMINANT>1.5 POSITIVE [id number]: (SUSY: 06/06/2016 22:00) ( [facility] 06/06/2016 22:51) Final results Test Result Flag Units (Reference) LACTIC ACID SEPSIS PROTOCOL 2.0 mmol/L (0.4-2.0) [id number]: (SUSY: 06/06/2016 22:00) ( [facility] 06/06/2016 22:56) Final results Test Result Flag Units (Reference) PROCALCITONIN 0.5 ng/mL (0-0.5) PCT Concentration: Interpretation : Risk/option for action PCT <=0.5 ng/mL : Systemic : Low risk forinfection(sepsis): progression to severeis not likely. : systemic infection.Local bacterial : CAUTION-PCT levelsinfection is : below 0.5 ng/mL do notpossible. : exclude an infection,because localizedinfections (withoutsystemic signs) may beassociated with suchlow levels. If PCT ismeasured very earlyafter a bacterialchallenge (usually <6hours), these valuesmay still be low. Inthis case PCT shouldbe re-assessed 6-24hours later. PCT >0.5 and : Systemic infection: Moderate risk for<= 2 ng/mL : (sepsis) is : progression to severepossible, but : systemic infection.other conditions : The patient should beare known to : closely monitoredelevate PCT. : both clinically andby re-assessing PCTwithin 6-24 hours. PCT > 2 ng/mL : Systemic infection: High risk for(sepsis) is likely: progression to severeunless other : systemic infection.causes are known. : PCT >= 10 ng/mL : Important systemic: High likelihood ofinflammatory : severe sepsis orresponse, almost : septic shock.exclusively due to:severe bacterial :sepsis or septic :shock. : CMP: (SUSY: 06/06/2016 22:00) ( MsgRcvd 06/06/2016 22:35) Final results Test Result Flag Units (Reference) GLUCOSE 104 mg/dL (70-110) BUN 45 H mg/dL (7-18) CREATININE 4.5 H mg/dL (0.6-1.3) Estimated GFR 13.54 mL/min Estimated GFR- 16.41 mL/min Note: Persistent reduction over 3 months in eGFR<60 mL/min/1.73 m2 defines CKD. Patients with eGFR values>=60 mL/min/1.73 m2 may also have CKD if evidence ofpersistent proteinuria. Additional information may be foundat www.[email or web address].org. SODIUM 142 mmol/L (136-145) POTASSIUM 4.5 mmol/L (3.5-5.1) CHLORIDE 101 mmol/L (98-107) CARBON DIOXIDE 30 mmol/L (21-32) CALCIUM 10.0 mg/dL (8.5-10.1) TOTAL PROTEIN 7.0 g/dL (6.4-8.2) ALBUMIN 3.0 L g/dL (3.3-5.0) BILIRUBIN, TOTAL 1.0 mg/dL (0.0-1.0) ALKALINE PHOSPHATASE 243 H U/L (46-116) AST (SGOT) 46 H U/L (15-37) ALT (SGPT) 27 U/L (12-78) MAGNESIUM 1.7 L mg/dL (1.8-2.4) LIPASE 290 U/L (73-393) AMYLASE 82 U/L (25-115) Venous Blood Gas: (SUSY: 06/06/2016 21:54) ( MsgRcvd 06/06/2016 22:02) Final results Test Result Flag Units (Reference) FIO2 28 % (20-101) ABG MODE OF DELIVERY NC VENOUS BLOOD GAS pH 7.422 H (7.31-7.41) VBG PCO2 46.9 mmHg (41-51) VENOUS BG PO2 29.6 mmHg (24.0-40.0) VENOUS BG HCO3 30.5 H mmol/L (22.0-28.0) VENOUS BG TCO2 31.9 H mmol/L (25.0-29.0) VENOUS BG SATO2 49.5 % (40.0-70.0) . PROGRESS AND PROCEDURES Course of Care: laboratory equipment in our facility was down for doing complete blood counts. Therefore these were sent to direct care in [place]. His CBC revealed a WBC count of 4.5, H&H of 12.4 and 38.8 respectively. platelet count was 172, RDW of 18.7 when transport arrived to transfer the patient. They attempted to wake him he seemed confused and disoriented. I therefore obtained a CT of his head which was unremarkable as noted. When he returned from having the imaging study performed he had become alert and oriented. Discussed case with hospitalist, (Mihir at [facility]). Reviewed test results and need for additional work-up. Agreed upon treatment plan and need for patient follow-up. Health care provider will see patient in hospital. Consult obtained. [facility] - nephrology. Case discussed. Phone consult only. Will see patient in the hospital. Patient/family counseled. Old medical records reviewed. Disposition: Transferred. CLINICAL IMPRESSION Congestive heart failure. Chronic renal failure. (Electronically signed by Hardik Simmons MD 06/07/2016 3:51)
--- NOTE | 2016-06-06 23:44 | ED NURSING NOTES ---
Clinical Report - Nurses [facility] [address] [place] [address] 06/06/2016 21:15 [id number] Triage time 21:Jun 06 2016. Acuity: LEVEL 2. Chief Complaint: (Hot to touch, disoriented to some questions, not all. denies any pain.). Alert. No acute distress. SEPSIS SCREEN: Sepsis Screen. Infection suspected/documented. Heart rate greater than 90, respiratory rate greater than 20 and glucose greater than 120 (with no history of diabetes). Physician notified and protocol initiated. ISMAEL COMA SCORE: Ismael Coma Scale: 14- eyes open spontaneously (4); best verbal response- disoriented (4); best motor response- obeys commands (6). --21:40 Leah Byrd R.N. 21:20 06/06/16. BP: 102/64. HR: 112. RR: 22. Temp: 99.7 F. Pain level now 0/10. --21:40 Leah Byrd R.N. Weight: 77.7 kg measured. Height/Length: 72 inches Estimated. BMI: 23.3. --21:20 Leah Byrd R.N. Medications Fludrocortisone 0.1mg, daily. Metoprolol Succinate ER Oral (Tablet Extended Release 24 Hour 50 mg) 1/2 tablet, daily. Omeprazole Oral 40 mg, daily. --21:27 Leah Byrd R.N. Atorvastatin Calcium Oral 80 mg, daily. Citalopram Hydrobromide Oral (Tablet 20 mg) 1 tablet, daily. Diphenoxylate-Atropine Oral (Tablet 2.5-0.025 mg) 1 tablet, 4 x daily as needed. FiberCon Oral (Tablet 625 mg) 1 tablet, daily. Megestrol Acetate Oral (Suspension 40 mg/mL) 400mg , daily as needed. Midodrine HCl Oral 5 mg, 3 x daily. Warfarin Sodium Oral (2.5mg for 1 day, 5 mg for 3-4 days , dependent on INR ). --21:27 Leah Byrd R.N. B-12 Oral 1-2 mg, TID. --22:03 Leah Byrd R.N. The following entry was struck by Leah Byrd R.N., 22:03 (06/06/16) Reason - other. <<STRICKEN ENTRY-- Calciun carbonate 1000mg , every 4 hrs PRN. --21:27 Leah Byrd R.N. --END STRIKE>> The following entry was struck and corrected by Leah Byrd R.N., 22:03 (06/06/16) Reason for correction - other(correction). <<STRICKEN ENTRY-- Fludrocortisone 0.2mg, daily. --21:27 Leah Byrd R.N. --END STRIKE>> The following entry was struck and corrected by Leah Byrd R.N., 22:02 (06/06/16) Reason for correction - other(correction). <<STRICKEN ENTRY-- Omeprazole Oral 20 mg, daily. --21:27 Leah Byrd R.N. --END STRIKE>> The following entry was struck and corrected by Leah Byrd R.N., 22:02 (06/06/16) Reason for correction - other(correction). <<STRICKEN ENTRY-- Metoprolol Succinate ER Oral (Tablet Extended Release 24 Hour 50 mg) 1 tablet, 2 x daily. --21:27 Leah Byrd R.N. --END STRIKE>>. Medication/allergy information source: the patient's spouse. --21:40 Leah Byrd R.N. Allergies Another antibiotic - pt unsure of name . Cipro. --21:27 Leah Byrd R.N. History Arrived by EMS, and (Colin). Historian: patient. Accompanied by ( is Elham). Primary physician (Wanda Treadwell, [facility]). ( called [phone] because her seems, "distant". Also brought him to the Walk In clinic today ([facility] [place]) for r/o PNU, had a CXR was told Negative. Dialysis TW[facility] - 2 years now at [facility]). Onset. (couple days). He has had fever. Treatment SENIOR GAME ADVISOR: None. SOCIAL HX: Former smoker. No alcohol use or drug use. NUTRITIONAL RISK ASSESSMENT: The nutritional risk assessment revealed no deficiencies. --21:40 Leah Byrd R.N. Treatment SENIOR GAME ADVISOR: Finger stick glucose performed (120). Pulse oximeter applied (high 80's to low 90's). End tidal CO2: 24. --22:21 Leah Byrd R.N. PROBLEMS: Abnormal Test. Abnormal EKG. Pneumonia. Atrial Fibrillation. Renal Failure. Internal defirbrilator . Pulmonary Embolism. Cancer. --21:27 Leah Byrd R.N. ADDITIONAL SURGERIES: Back Surgery. Internal Defibrillator. Pulmonary ectomy. Shoulder Surgery. --21:27 Leah Byrd R.N. Interventions ID band on patient. To room. --21:40 Leah Byrd R.N. PHYSICAL ASSESSMENT To room via stretcher. GENERAL / NEURO / PSYCH: Appears in no acute distress. The patient is disoriented to time. SKIN: Skin intact. Skin is dry. ( hot to touch). --21:41 Leah Byrd R.N. RESPIRATORY: Mild respiratory distress. The patient can speak a few words at a time. Decreased breath sounds. Crackles present. --22:22 Leah Byrd R.N. CVS: Cardiac rhythm: atrial fibrillation. --22:22 Leah Byrd R.N. NURSING PROGRESS NOTES 21:41 06/06/2016 Site #1 started prior to arrival by EMS via IV in the right antecubital space with an 20g angiocath. --21:41 Leah Byrd R.N. 21:42 06/06/2016 Site #2 started via IV in the right wrist with an 20g angiocath, with aseptic technique; three attempts. Blood drawn: rainbow set. Sent to the lab. Saline lock flushed with saline. --21:42 Leah Byrd R.N. 21:42 06/06/2016 Two (2) unsuccessful IV access attempts including the right forearm (2 attempts by RICH Ibrahim). --21:42 Leah Byrd R.N. ( Sepsis Protocol initiated.). --21:43 Leah Byrd R.N. EKG time: (2143 PM). EKG was ordered, performed by a tech and shown to the ED physician. --21:49 Shira Foster ( Provider at bedside.). --22:04 Leah Byrd R.N. Cardiac rhythm: atrial fibrillation. Oxygen administered by nasal cannula at 2 liters. groundwater monitoring technician and pulse oximeter placed on patient; monitoring and evaluation advisor- Lead II; monitor alarms on. Patient gowned. Reassurance given. --22:05 Leah Byrd R.N. 22:00 06/06/2016 Started bag #1 1000 mL IV Fluids IV NS (Saline); bolus of 250 mL over 30 minute(s) then at 100 mL/hr over 4 hour(s) via site #1 via IV pump. IV patency established. IV site checked: no pain, redness, or swelling. IV flushed thoroughly pre- and post-medication administration. Completed per protocol. --22:24 Leah Byrd R.N. Call light placed in reach. ( Water provided per pt request. at bedside.). --22:25 Leah Byrd R.N. 00:05 06/07/16. BP: 95/68. HR: 98. RR: 18. O2 saturation: 97%. Pain level now 0/10. --00:06 Leah Byrd R.N. The patient is sleeping. --00:16 Leah Byrd R.N. 02:22 06/07/16. ( Patient repositioned in bed, legs elevated. Waiting for bed assignment at [facility].). --02:22 Tigist Jasso R.N. 03:29 06/07/16. ( CT of brain completed. Moved back to EMS stretcher. Does not appear to have any intracranial bleeding . Pt is now answering questions, able to give name, , wifes name and his current location correctly.). --03:29 Tigist Jasso R.N. 22:30 06/07/2016 IV Fluids IV NS via IV site #1 Rate Changed: bag #1 25 mL/hr via IV pump (pt has a BNP of greater than 5000 and also a Dialysis pt.). --00:17 Leah Byrd R.N. 00:18 06/07/16. BP: 101/69. HR: 117. RR: 22. O2 saturation: 93%. Pain level now 0/10. --00:18 Leah Byrd R.N. ( repositioned. Saline Locked.). --01:22 Leah Byrd R.N. 01:21 06/07/16. Temp: 97.4 F. --01:22 Leah Byrd R.N. 01:22 06/07/16. BP: 101/69. HR: 99. RR: 18. O2 saturation: 98%. --01:22 Leah Byrd R.N. ( pt increased to 3 liters.). --01:22 Leah Byrd R.N. ( Fluids stopped d/t BNP. Pt repositioned because he audibly sounds more wet with breathing. Lung sounds have not worsened, improved with positioning.). --01:26 Leah Byrd R.N. Care transferred and report given (RICH Andres). --01:27 Leah Byrd R.N. DISPOSITION / DISCHARGE 02:34 06/07/2016 Site #[address] upon transfer. --02:34 Tigist Jasso R.N. 02:34 06/07/2016 Site #[address] upon transfer. --02:34 Tigist Jasso R.N. 02:35 06/07/16. Cardiac rhythm: atrial fibrillation. Condition at departure: improved and stable. The goals identified in the patient's plan of care were met. Transferred to [facility] (room 3024). Report was given to a nurse via a phone call. Report included patient's care, treatment, medications, reviewed medication reconcilliation, and condition (including any recent changes or anticipated changes). All questions were answered. Report was acknowledged. (to Meghan Johnson). Bed obtained (02:30 Jun 07 2016). --02:35 Tigist Jasso R.N. 02:35 06/07/16. BP: 104/66. HR: 92. RR: 18. O2 saturation: 97%. Temp: 97.9 F. Pain level now 0/10. --02:35 Tigist Jasso R.N. Transferred to [facility] (03:05). ( Pt is being transported by [facility] on the monitoring and evaluation advisor. Report was given to Braulio VILLANUEVA. Pt was placed on the stretcher and seatbelts were placed.). --03:09 Patrice Douglas R.N. Departure time: 03:09. --03:09 Patrice Douglas R.N. 03:19 06/07/16. Cardiac rhythm: atrial fibrillation. The goals identified in the patient's plan of care were met. ( Patient with acute mental status change. Difficult to arouse, required painful stimulation. Now awake. Unable to give birthday or state name. MD aware, CT ordered. Transport crew with patient now. MD will call receiving facility with results of CT.). --03:19 Tigist Jasso R.N. 03:19 06/07/16. BP: 102/72. HR: 122. RR: 18. O2 saturation: 97%. Temp: 98.0 F. --03:19 Tigist Jasso R.N. Departure time: 03:38 Jun 07 2016. ( RICH Christianson at [facility] updated on patient condition. fingerstick blood sugar prior to CT 98.). --03:38 Tigist Jasso R.N. Locked/Released at 06/07/2016 3:39 by Tigist Jasso R.N.
--- NOTE | 2016-06-06 23:44 | ED CLINICAL REPORT ---
Clinical Report - Physicians/Mid Levels [facility] [address] [place] [address] 06/06/2016 21:15 Patient: SERVANDO LEMA Time Seen: 21:21. Arrived- By ambulance. Historian- patient, EMS personnel and spouse. History limited by vague historian. HISTORY OF PRESENT ILLNESS Chief Complaint: DYSPNEA. At its maximum, severity described as moderate. When seen in the E.D., severity described as moderate. This started several days ago and is still present and now worse. It was gradual in onset and has been constant. (his says that he has had a cough productive of white thick phlegm. Patient reports chronic intermittent palpitations he denies any chest pain denies leg swelling. He has chronic renal failure and receives dialysis every Monday, and Monday.). Similar symptoms previously: Several times. REVIEW OF SYSTEMS No chills, fever, sweats, calf pain or chest pain. No pedal edema, abdominal pain, constipation, diarrhea or nausea. No vomiting or urinary problems. He has had a cough and difficulty breathing. He has had palpitations. It has been similar to previous symptoms. All systems otherwise negative, except as recorded above. PAST HISTORY Problems: Abnormal Test. Abnormal EKG. Pneumonia. Atrial Fibrillation. Renal Failure. Internal defirbrilator . Pulmonary Embolism. Cancer. Additional Surgeries: Back Surgery. Internal Defibrillator. Pulmonary ectomy. Shoulder Surgery. Medications: B-12 Oral 1-2 mg, TID. Atorvastatin Calcium Oral 80 mg, daily. Citalopram Hydrobromide Oral (Tablet 20 mg) 1 tablet, daily. Diphenoxylate-Atropine Oral (Tablet 2.5-0.025 mg) 1 tablet, 4 x daily as needed. FiberCon Oral (Tablet 625 mg) 1 tablet, daily. Megestrol Acetate Oral (Suspension 40 mg/mL) 400mg , daily as needed. Midodrine HCl Oral 5 mg, 3 x daily. Warfarin Sodium Oral (2.5mg for 1 day, 5 mg for 3-4 days , dependent on INR ). Fludrocortisone 0.1mg, daily. Metoprolol Succinate ER Oral (Tablet Extended Release 24 Hour 50 mg) 1/2 tablet, daily. Omeprazole Oral 40 mg, daily. Allergies: Another antibiotic - pt unsure of name . Cipro. SOCIAL HISTORY Former smoker. No alcohol use or drug use. He lives with spouse. Has good social support. FAMILY HISTORY Denies family medical history. ADDITIONAL NOTES The nursing notes have been reviewed. PHYSICAL EXAM Vital Signs: Have been reviewed. Appearance: Alert. Eyes: Pupils equal, round and reactive to light. ENT: Pharynx normal. Neck: Neck supple. No meningeal signs, JVD or carotid bruit. CVS: Tachycardia. Abnormal rhythm, which is irregularly irregular. Respiratory: No respiratory distress. Breath sounds normal. Abdomen: No visible injury. Soft and nontender. Bowel sounds normal. No organomegaly. No mass. Back: Normal inspection. No CVA tenderness. Skin: Skin warm and dry. Normal skin color. Normal skin turgor. Extremities: Extremities exhibit normal ROM. No calf tenderness. No lower extremity edema. LABS, X-RAYS, AND EKG EKG: Rate: 110. Atrial fibrillation. Q waves in lead V1, V2 and V3. Left axis deviation. Changes present when compared to prior EKG. (06 Apr 2016). Chest X-ray: (IMPRESSION: 1. Findings of CHF with central vascular and interstitial congestion. 2. Retrocardiac opacity suggestive of atelectasis, edema, and small effusion.). CT Head: No acute changes. (chronic microvascular ischemic disease and volume loss). The study was interpreted by the radiologist and contemporaneously by me. Laboratory Tests: PT with INR: (SUSY: 06/06/2016 22:00) ( MsgRcvd 06/06/2016 22:28) Final results Test Result Flag Units (Reference) INR 3.6 H (0.8-1.2) Low Intensity Therapy: INR 1.5-2.0 PT range 18.5-23.1Mod.Intensity Therapy: INR 2.0-3.0 PT range 23.1-31.5High Intensity Therapy: INR 2.5-3.5 PT range 27.4-35.5High Intensity Therapy 2: INR 3.0-4.0 PT range 31.5-39.3 APTT 52 H SECONDS (24-34) BNP: (SUSY: 06/06/2016 22:00) ( [facility] 06/06/2016 22:38) Final results Test Result Flag Units (Reference) B-TYPE NATRIURETIC PEPTIDE > 5000 H pg/ml (5-100) CPK: (SUSY: 06/06/2016 22:00) ( [facility] 06/06/2016 22:36) Final results Test Result Flag Units (Reference) CPK 120 U/L (24-260) TROPONIN I 0.22 ng/mL (0.00-1.5) TROPONIN REFERENCE RANGE:<0.1 NEGATIVE0.1-1.5 INDETERMINANT>1.5 POSITIVE [id number]: (SUSY: 06/06/2016 22:00) ( [facility] 06/06/2016 22:51) Final results Test Result Flag Units (Reference) LACTIC ACID SEPSIS PROTOCOL 2.0 mmol/L (0.4-2.0) [id number]: (SUSY: 06/06/2016 22:00) ( [facility] 06/06/2016 22:56) Final results Test Result Flag Units (Reference) PROCALCITONIN 0.5 ng/mL (0-0.5) PCT Concentration: Interpretation : Risk/option for action PCT <=0.5 ng/mL : Systemic : Low risk forinfection(sepsis): progression to severeis not likely. : systemic infection.Local bacterial : CAUTION-PCT levelsinfection is : below 0.5 ng/mL do notpossible. : exclude an infection,because localizedinfections (withoutsystemic signs) may beassociated with suchlow levels. If PCT ismeasured very earlyafter a bacterialchallenge (usually <6hours), these valuesmay still be low. Inthis case PCT shouldbe re-assessed 6-24hours later. PCT >0.5 and : Systemic infection: Moderate risk for<= 2 ng/mL : (sepsis) is : progression to severepossible, but : systemic infection.other conditions : The patient should beare known to : closely monitoredelevate PCT. : both clinically andby re-assessing PCTwithin 6-24 hours. PCT > 2 ng/mL : Systemic infection: High risk for(sepsis) is likely: progression to severeunless other : systemic infection.causes are known. : PCT >= 10 ng/mL : Important systemic: High likelihood ofinflammatory : severe sepsis orresponse, almost : septic shock.exclusively due to:severe bacterial :sepsis or septic :shock. : CMP: (SUSY: 06/06/2016 22:00) ( MsgRcvd 06/06/2016 22:35) Final results Test Result Flag Units (Reference) GLUCOSE 104 mg/dL (70-110) BUN 45 H mg/dL (7-18) CREATININE 4.5 H mg/dL (0.6-1.3) Estimated GFR 13.54 mL/min Estimated GFR- 16.41 mL/min Note: Persistent reduction over 3 months in eGFR<60 mL/min/1.73 m2 defines CKD. Patients with eGFR values>=60 mL/min/1.73 m2 may also have CKD if evidence ofpersistent proteinuria. Additional information may be foundat www.[email or web address].org. SODIUM 142 mmol/L (136-145) POTASSIUM 4.5 mmol/L (3.5-5.1) CHLORIDE 101 mmol/L (98-107) CARBON DIOXIDE 30 mmol/L (21-32) CALCIUM 10.0 mg/dL (8.5-10.1) TOTAL PROTEIN 7.0 g/dL (6.4-8.2) ALBUMIN 3.0 L g/dL (3.3-5.0) BILIRUBIN, TOTAL 1.0 mg/dL (0.0-1.0) ALKALINE PHOSPHATASE 243 H U/L (46-116) AST (SGOT) 46 H U/L (15-37) ALT (SGPT) 27 U/L (12-78) MAGNESIUM 1.7 L mg/dL (1.8-2.4) LIPASE 290 U/L (73-393) AMYLASE 82 U/L (25-115) Venous Blood Gas: (SUSY: 06/06/2016 21:54) ( MsgRcvd 06/06/2016 22:02) Final results Test Result Flag Units (Reference) FIO2 28 % (20-101) ABG MODE OF DELIVERY NC VENOUS BLOOD GAS pH 7.422 H (7.31-7.41) VBG PCO2 46.9 mmHg (41-51) VENOUS BG PO2 29.6 mmHg (24.0-40.0) VENOUS BG HCO3 30.5 H mmol/L (22.0-28.0) VENOUS BG TCO2 31.9 H mmol/L (25.0-29.0) VENOUS BG SATO2 49.5 % (40.0-70.0) . PROGRESS AND PROCEDURES Course of Care: laboratory equipment in our facility was down for doing complete blood counts. Therefore these were sent to direct care in Center. His CBC revealed a WBC count of 4.5, H&H of 12.4 and 38.8 respectively. platelet count was 172, RDW of 18.7 when transport arrived to transfer the patient. They attempted to wake him he seemed confused and disoriented. I therefore obtained a CT of his head which was unremarkable as noted. When he returned from having the imaging study performed he had become alert and oriented. Discussed case with hospitalist, (Mihir at [facility]). Reviewed test results and need for additional work-up. Agreed upon treatment plan and need for patient follow-up. Health care provider will see patient in hospital. Consult obtained. [facility] - nephrology. Case discussed. Phone consult only. Will see patient in the hospital. Patient/family counseled. Old medical records reviewed. Disposition: Transferred. CLINICAL IMPRESSION Congestive heart failure. Chronic renal failure. (Electronically signed by Hardik Simmons MD 06/07/2016 3:51)
--- NOTE | 2016-06-07 03:51 | ED DISCHARGE INSTRUCTIONS ---
Patient: SERVANDO LEMA Maryjane General Instructions [facility] VisitID: [id number] [address] [place] [address] 76y, M Registration Date/Time: 06/06/2016 Congestive heart failure. Chronic renal failure. (Electronically signed by Hardik Simmons MD 06/07/2016 3:51)
--- NOTE | 2016-06-07 03:51 | ED DISCHARGE INSTRUCTIONS ---
Patient: SERVANDO LEMA Maryjane General Instructions [facility] VisitID: [id number] [address] [place] [address] 76y, M Registration Date/Time: 06/06/2016 Congestive heart failure. Chronic renal failure. (Electronically signed by Hardik Simmons MD 06/07/2016 3:51)
--- NOTE | 2016-06-07 03:52 | ED MED RECONCILIATION SUMMARY ---
Patient: SERVANDO LEMA Medication Reconciliation Report [facility] VisitID: [id number] [address] [place] [address] 76y, M Registration Date/Time: 06/06/2016 Weight: 77.7 kg Height/Length: 72 in. BMI: 23.3 ALLERGIES: Another antibiotic - pt unsure of name , Cipro The patient's Home Medications are listed below: THE FOLLOWING MEDICATIONS NEED TO BE RECONCILED: Atorvastatin Calcium Oral 80 mg, daily B-12 Oral 1-2 mg, TID Citalopram Hydrobromide Oral (20 mg) 1 tablet, daily Diphenoxylate-Atropine Oral (2.5-0.025 mg) 1 tablet, 4 x daily FiberCon Oral (625 mg) 1 tablet, daily Fludrocortisone 0.1mg, daily Megestrol Acetate Oral (40 mg/mL) 400mg , daily Metoprolol Succinate ER Oral (50 mg) 1/2 tablet, daily Midodrine HCl Oral 5 mg, 3 x daily Omeprazole Oral 40 mg, daily Warfarin Sodium Oral, 2.5mg for 1 day, 5 mg for 3-4 days , dependent on INR The source(s) of the original Home Medication information: patient's spouse The following Medications were given to the patient in the Emergency Department: IV NS IV Fluids bolus 250 mL over 30 minute(s), then 100 mL/hr, administered: 06/06/2016 10:00:00 PM The following Medications were prescribed to the patient: None.
--- NOTE | 2016-06-07 03:52 | ED MED RECONCILIATION SUMMARY ---
Patient: SERVANDO LEMA Medication Reconciliation Report [facility] VisitID: [id number] [address] [place] [address] 76y, M Registration Date/Time: 06/06/2016 Weight: 77.7 kg Height/Length: 72 in. BMI: 23.3 ALLERGIES: Another antibiotic - pt unsure of name , Cipro The patient's Home Medications are listed below: THE FOLLOWING MEDICATIONS NEED TO BE RECONCILED: Atorvastatin Calcium Oral 80 mg, daily B-12 Oral 1-2 mg, TID Citalopram Hydrobromide Oral (20 mg) 1 tablet, daily Diphenoxylate-Atropine Oral (2.5-0.025 mg) 1 tablet, 4 x daily FiberCon Oral (625 mg) 1 tablet, daily Fludrocortisone 0.1mg, daily Megestrol Acetate Oral (40 mg/mL) 400mg , daily Metoprolol Succinate ER Oral (50 mg) 1/2 tablet, daily Midodrine HCl Oral 5 mg, 3 x daily Omeprazole Oral 40 mg, daily Warfarin Sodium Oral, 2.5mg for 1 day, 5 mg for 3-4 days , dependent on INR The source(s) of the original Home Medication information: patient's spouse The following Medications were given to the patient in the Emergency Department: IV NS IV Fluids bolus 250 mL over 30 minute(s), then 100 mL/hr, administered: 06/06/2016 10:00:00 PM The following Medications were prescribed to the patient: None.
--- NOTE | 2016-06-07 03:52 | ED MAR SUMMARY ---
..... Medication Administration Record [facility] [address] [place] [address] Patient: SERVANDO LEMA Visit ID: [id number] 76y, M Weight: 77.7 kg Height/Length: 72 in BMI: 23.3 ALLERGIES: Another antibiotic - pt unsure of name , Cipro Start 22:00 06/06/2016 Leah Byrd R.N. Medication Administered: IV NS (SALINE), Dose: IV Fluids over 4 hour(s), Rate: 100 mL/hr, Bolus: 250 mL over 30 minute(s), Dispensed: 1000 mL bag, Site: #1 right AC. Medication Ordered: IV NS : initial bolus 250 mL (1000 mL/hr), then 100 mL/hr for 4h (NOW); Urgent.
--- NOTE | 2016-06-07 03:52 | ED MAR SUMMARY ---
..... Medication Administration Record [facility] [address] [place] [address] Patient: SERVANDO LEMA Visit ID: [id number] 76y, M Weight: 77.7 kg Height/Length: 72 in BMI: 23.3 ALLERGIES: Another antibiotic - pt unsure of name , Cipro Start 22:00 06/06/2016 Leah Byrd R.N. Medication Administered: IV NS (SALINE), Dose: IV Fluids over 4 hour(s), Rate: 100 mL/hr, Bolus: 250 mL over 30 minute(s), Dispensed: 1000 mL bag, Site: #1 right AC. Medication Ordered: IV NS : initial bolus 250 mL (1000 mL/hr), then 100 mL/hr for 4h (NOW); Urgent.
--- NOTE | 2016-06-07 07:11 | DIAGNOSTIC IMAGING REPORT ---
PROCEDURE: CT HEAD WITHOUT CONTRAST INDICATION: MENTAL STATUS CHANGE, initial encounter. TECHNIQUE: Noncontrast axial images with sagittal and coronal reformations. COMPARISON: None. FINDINGS: Moderate cortical atrophy with mild enlargement of the ventricular system. Minor white matter chronic ischemic changes. No evidence of acute intracranial process. Visualized mastoids and sinuses are clear. IMPRESSION: 1. No acute intracranial abnormality 2. Moderate atrophy with minor white matter chronic ischemic changes 3. Preliminary results submitted by Dr. Burt, [facility] radiology.
== END 2016-06-07 03:38 | disposition short-term general hospital (02) ==
LOC: ED SRH 21:15
DX: I50.9 Heart failure, unspecified (principal); N18.9 Chronic kidney disease, unspecified; Z87.891 Personal history of nicotine dependence; Z79.01 Long term (current) use of anticoagulants; Z79.899 Other long term (current) drug therapy; Z88.1 Allergy status to other antibiotic agents; Z88.8 Allergy status to other drugs, medicaments and biological substances
CPT/HCPCS: 90065; 90100; 90616; 91320; 92031; 92235; 92530; 92610; 92720; 93004; 94001; 94060